=== PATIENT | male | born 1995 | race Caucasian/White ===

== ENCOUNTER 2020-11-20 20:10 | Emergency (ER) | payer OTHER ==
[~2020-11-20] VITALS: Ht 177.8 cm; Wt 97.7 kg
[2020-11-20 20:15] VITALS: BP 147/44
== END 2020-11-20 21:44 | disposition home or self-care (01) ==
LOC: EMS 20:10
DX: Z20.822 Contact with and (suspected) exposure to COVID-19 (principal)
CPT/HCPCS: 99283; U0003